=== PATIENT | male | born 1970 | race Caucasian/White ===

== ENCOUNTER → 2017-12-16 08:44 | Outpatient (CLI) | payer OTHER, SELFPAY ==
[2017-12-16 10:33] LABS: Absolute Lymphocyte Count 1.39 X10^3/ul (0.83-4.51); Absolute Neutrophil Count 3.2 X10^3/uL (2.0-7.7); Basophil# 0.04 X10^3/uL; Basophil% 0.7 % (0-1); Eosinophil# 0.17 X10^3/uL; Eosinophils% 3.1 % (0-5); Hematocrit 42.9 % (40-54); Hemoglobin 15.2 g/dl (13.0-16.5); Lymphocyte # 1.39 X10^3/ul (4.0); Lymphocyte % 25.6 % (19-41); Mean Corp Hgb Conc 35.4 g/gl (32-36); Mean Corpuscular Hgb 30.7 pg (27.0-32.0); Mean Corpuscular Volume 86.7 fL (80-94); Mean Platelet Vol. 9.3 fl (6.2-12.0); Monocyte# 0.61 X10^3/uL; Monocyte% 11.2 % (0-10); Neutrophil # 3.22 X10^3/uL (2.7-7.7); Neutrophil % 59.2 % (47-70); Platelet Count 348 K/mm3 (150-450); RBC Distribution Width CV 11.5 % (11.6-14.6); RBC Distribution Width SD 35.9 fl (35.1-43.9); Red Blood Count 4.95 M/mm3 (4.6-6.2); White Blood Count 5.4 K/mm3 (4.4-11.0)
[2017-12-16 10:35] LABS: POSITIVE COUNT NO; POSITIVE DIFFERENTIAL NO; POSITIVE MORPHOLOGY NO
[2017-12-16 10:55] LABS: Anion Gap 8 (5-15); BUN 18 mg/dL (7-18); BUN/Creat Ratio 14.9 RATIO (10-20); Calcium,Total 8.6 mg/dL (8.5-10.1); Chloride 109 mmol/L (98-107); Creatinine, Serum 1.21 mg/dL (0.70-1.30); EST Glomerular Filtration Rate 68 mL/min (>60); Est Glom Filt Rate - Afr Amer 82 mL/min (>60); Glucose 113 mg/dL (74-106); Potassium 4.3 mmol/L (3.5-5.1); Sodium Level 142 mmol/L (136-145)
[2017-12-22 15:08] LABS: QNTFERON TB Ag Minus Nil Value 0.09 IU/mL (.); QNTFERON TB Ag Value 0.12 IU/mL (.); QNTFERON TB Mitogen Value > 10.00 IU/mL (.); QNTFERON TB Nil Value 0.03 IU/mL (.)
[2017-12-23 12:00] LABS: QNTIFERON TB Gold Negative (Negative)
== END ==
PROVIDERS: Family Provider Family Medicine; PCP Family Medicine; Visit Provider Physician Assistant
DX: L40.0 Psoriasis vulgaris (principal); Z79.899 Other long term (current) drug therapy
CPT/HCPCS: 36415; 80048; 85025; 86480

== ENCOUNTER → 2018-05-15 12:52 | Outpatient (CLI) | payer OTHER, SELFPAY ==
--- NOTE | 2018-05-15 09:50 | RAD_ITS ---
HISTORY: psoriatic arthropathy COMPARISON: None FINDINGS: AP Pelvis: 1 view. No fracture or acute disease. Mild narrowing of the hips bilaterally with suggestion of subchondral sclerosis and subchondral cyst formation of the acetabular regions bilaterally. The SI joints appear preserved. As visualized, soft tissues are negative. RAD/Pelvis 1 or 2 Views IMPRESSION: 1. 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 2. The SI joints appear normal. at 0617 Reported and signed by: Shayan Liang MD Electronically Signed: Shayan Liang, at 6:15 EST Tel , Service support ,
[2018-05-15 13:37] LABS: ALB/GLOB Ratio 1.1 RATIO (0.9-2.4); AST(SGOT) 23 U/L (15-37); Alanine Aminotransfer ALT/SGPT 28 U/L (16-61); Albumin, Serum 3.9 g/dL (3.2-5.0); Alkaline Phosphatase 68 U/L (45-117); Anion Gap 8 (5-15); BUN 18 mg/dL (7-18); CRP < 2.90 mg/L (0.0-3.0); Calcium,Total 8.8 mg/dL (8.5-10.1); Chloride 111 mmol/L (98-107); EST Glomerular Filtration Rate 69 mL/min (>60); Est Glom Filt Rate - Afr Amer 83 mL/min (>60); Globulin 3.7 g/dL (2.2-4.2); Glucose 93 mg/dL (74-106); Potassium 4.5 mmol/L (3.5-5.1); Protein, Total 7.6 g/dL (6.4-8.2); Rheumatoid Factor < 10.0 IU/mL (<15); Sodium Level 141 mmol/L (136-145)
[2018-05-15 13:40] LABS: Absolute Lymphocyte Count 1.46 X10^3/ul (0.83-4.51); Absolute Neutrophil Count 3.8 X10^3/uL (2.0-7.7); Basophil# 0.03 X10^3/uL; Basophil% 0.5 % (0-1); Eosinophil# 0.13 X10^3/uL; Eosinophils% 2.2 % (0-5); Hematocrit 44.5 % (40-54); Hemoglobin 14.9 g/dl (13.0-16.5); Lymphocyte # 1.46 X10^3/ul (4.0); Lymphocyte % 24.7 % (19-41); Mean Corp Hgb Conc 33.5 g/gl (32-36); Mean Corpuscular Hgb 29.7 pg (27.0-32.0); Mean Corpuscular Volume 88.6 fL (80-94); Mean Platelet Vol. 9.6 fl (6.2-12.0); Monocyte# 0.53 X10^3/uL; Neutrophil # 3.75 X10^3/uL (2.7-7.7); Neutrophil % 63.4 % (47-70); Platelet Count 311 K/mm3 (150-450); RBC Distribution Width CV 12.1 % (11.6-14.6); RBC Distribution Width SD 38.5 fl (35.1-43.9); Red Blood Count 5.02 M/mm3 (4.6-6.2); White Blood Count 5.9 K/mm3 (4.4-11.0)
[2018-05-15 13:44] LABS: POSITIVE COUNT NO; POSITIVE DIFFERENTIAL NO; POSITIVE MORPHOLOGY NO
[2018-05-15 14:07] LABS: Erythrocyte Sedimentation Rate 9 mm/hr (0-15)
[2018-05-20 19:48] LABS: CCP IgG Antibodies 9 units (0-19); HEPATITIS B SURFACE AG Negative (Negative); HLA B27 Negative (.); Hep B Surface Antibodies Non Reactive (.); Hep C Antibodies 0.1 s/co ratio (0.0-0.9)
== END ==
PROVIDERS: Family Provider Family Medicine; PCP Family Medicine; Referring Provider Internal Medicine Rheumatology; Visit Provider Internal Medicine Rheumatology
DX: L40.59 Other psoriatic arthropathy (principal)
CPT/HCPCS: 36415; 72170; 80053; 81374; 85025; 85652; 86140; 86200; 86431; 86706; 86803; 87340

== ENCOUNTER → 2018-05-26 08:09 | Outpatient (CLI) | payer OTHER, SELFPAY ==
[2018-05-26 10:37] LABS: Absolute Lymphocyte Count 1.28 X10^3/ul (0.83-4.51); Absolute Neutrophil Count 3.5 X10^3/uL (2.0-7.7); Basophil# 0.02 X10^3/uL; Basophil% 0.4 % (0-1); Eosinophil# 0.18 X10^3/uL; Eosinophils% 3.3 % (0-5); Hematocrit 44.7 % (40-54); Hemoglobin 15.8 g/dl (13.0-16.5); Lymphocyte # 1.28 X10^3/ul (4.0); Lymphocyte % 23.4 % (19-41); Mean Corp Hgb Conc 35.3 g/gl (32-36); Mean Corpuscular Hgb 30.4 pg (27.0-32.0); Mean Platelet Vol. 9.4 fl (6.2-12.0); Monocyte# 0.51 X10^3/uL; Monocyte% 9.3 % (0-10); Neutrophil # 3.45 X10^3/uL (2.7-7.7); Neutrophil % 63.2 % (47-70); Platelet Count 336 K/mm3 (150-450); RBC Distribution Width CV 11.7 % (11.6-14.6); RBC Distribution Width SD 36.9 fl (35.1-43.9); White Blood Count 5.5 K/mm3 (4.4-11.0)
[2018-05-26 10:43] LABS: POSITIVE COUNT NO; POSITIVE DIFFERENTIAL NO; POSITIVE MORPHOLOGY NO
[2018-05-26 11:12] LABS: AST(SGOT) 27 U/L (15-37); Alanine Aminotransfer ALT/SGPT 36 U/L (16-61); Albumin, Serum 3.8 g/dL (3.2-5.0); Alkaline Phosphatase 69 U/L (45-117); Anion Gap 8 (5-15); BUN 19 mg/dL (7-18); BUN/Creat Ratio 16.2 RATIO (10-20); Calcium,Total 8.9 mg/dL (8.5-10.1); Chloride 106 mmol/L (98-107); Creatinine, Serum 1.17 mg/dL (0.70-1.30); EST Glomerular Filtration Rate 71 mL/min (>60); Est Glom Filt Rate - Afr Amer 86 mL/min (>60); Glucose 119 mg/dL (74-106); Potassium 4.2 mmol/L (3.5-5.1); Protein, Total 7.8 g/dL (6.4-8.2); Sodium Level 140 mmol/L (136-145)
--- OUTSIDE RECORDS SUMMARY | 2018-07-07 20:39 | XMS RPT_ITS ---
:1970 Author Organization OHIP Care Team Providers Name Role Phone Michell Cox Attending Unavailable Michell Cox Referring Unavailable Agnieszka, [place] Primary Care Unavailable Ngozi Winkler Attending Unavailable Jaysonlanmahad, Ngozi Referring Unavailable Agnieszka, [place] Primary Care Unavailable Michell Cox Attending Unavailable Cox, Michell Referring Unavailable Agnieszka, Wang Primary Care Unavailable PROBLEMS PROBLEMS DATE TYPE CONDITION / CODE ATTENDING STATUS SOURCE 05/26/2018 Unknown L40.0 - Psoriasis Michell Cox Active [place] [facility] L40.0(ICD-10) Hospital Repository 05/15/2018 Unknown L40.59 - Other JaysonlanNgozi tobin Active [place] [facility] arthropathy / Hospital L40.59(ICD-10) Repository 05/15/2018 Unknown L40.8 - Other Vellanki, Ngozi Active [place] psoriasis / [facility] L40.8(ICD-10) Hospital Repository PROCEDURES PROCEDURES No Procedure Records FoundRESULTS RESULTS CBC W/DIFF, AUTOMATED Collected: 05/26/2018 Status: F Source: [place] 8:14 AM [facility] REPOSITORY TYPE CODE TESTS RESULT OUT OF RANGE REFERENCE UNITS LAB L100.1000 4.4-11.0 K/mm3 Normal WBC 5.5 LAB L100.1200 4.6-6.2 M/mm3 Normal RBC 5.20 LAB L100.1300 13.0-16.5 g/dl Normal HGB 15.8 LAB L100.1400 40-54 % Normal HCT 44.7 LAB L100.1500 80-94 fL Normal MCV 86.0 LAB L100.1600 27.0-32.0 pg Normal MCH 30.4 LAB L100.1700 32-36 g/gl Normal MCHC 35.3 LAB L100.1810 11.6-14.6 % Normal RDW CV 11.7 LAB L100.1820 35.1-43.9 fl Normal RDW SD 36.9 LAB L100.1900 150-450 K/mm3 Normal PLT 336 LAB L100.2000 6.2-12.0 fl Normal MPV 9.4 LAB L100.2100 47-70 % Normal NEUT% 63.2 LAB L100.2200 19-41 % Normal LY% 23.4 LAB L100.2300 0-10 % Normal MONO% 9.3 LAB L100.2400 0-5 % Normal EO% 3.3 LAB L100.2500 0-1 % Normal BASO% 0.4 LAB L100.2550 0.0-0.9 % Normal IM GRAN % 0.400 Result Comment: IG% - Immature Granulocytes (promyelocytes, myelocytes and metamyelocytes) > 1% indicates that a LEFT SHIFT is Present. LAB L100.2620 2.0-7.7 X10 3/uL Normal Absolute Neut 3.5 LAB L100.2720 0.83-4.51 X10 3/ul Normal Absolute Lymph 1.28 Performed By: #### L100.0100 #### [facility] [address] [place], [address] COMPREHENSIVE METABOLIC Collected: 05/26/2018 Status: F Source: [facility] 8:14 AM [facility] [place] TYPE CODE TESTS RESULT OUT OF RANGE REFERENCE UNITS LAB L501.0100 74-106 mg/dL High GLU 119 Result Comment: Fasting Glucose result from 100 to 125 mg/dL suggests IMPAIRED HOMEOSTASIS per A.D.A. criteria. Please note revised GLUCOSE reference range effective 2017. LAB L501.1000 7-18 mg/dL High BUN 19 LAB L501.1100 0.70-1.30 mg/dL Normal CREAT,SERUM 1.17 Result Comment: The validity of the calculated GFR AND GFRAA in patients over 70 years has not been determined. Clinical correlation is essential. LAB L501.1110 >60 mL/min Normal EST GFR 71 Result Comment: Non- GFR Calc LAB L501.1115 >60 mL/min Normal EST GFR - AA 86 Result Comment: GFR Calc LAB L501.1300 10-20 RATIO Normal BUN/CRE 16.2 LAB L501.1500 6.4-8.2 g/dL T Normal PROT 7.8 LAB L501.1800 3.2-5.0 g/dL Normal ALB 3.8 LAB L501.1950 2.2-4.2 g/dL Normal GLOB 4.0 LAB L501.2000 0.9-2.4 RATIO Normal A/G 1.0 LAB L501.2200 8.5-10.1 mg/dL CA Normal 8.9 LAB L501.4100 15-37 U/L Normal AST 27 LAB L501.4305 45-117 U/L Normal ALK P 69 LAB L501.4405 16-61 U/L Normal ALT 36 LAB L501.4600 0.20-1.00 mg/dL T Normal BILI 0.40 LAB L501.5300 136-145 mmol/L NA Normal 140 LAB L501.5600 3.5-5.1 mmol/L K Normal 4.2 LAB L501.5900 98-107 mmol/L CL Normal 106 LAB L501.6100 21.0-32.0 mmol/L Normal CO2 26.0 LAB L501.6200 5-15 Normal GAP 8 Performed By: #### L500.4050 #### [facility] [address] [facility] [place], [address] PELVIS 1 OR 2 VIEWS Observed: 05/15/2018 Status: F Source: [place] 2:46 PM [facility] [place] [facility] Imaging Services [address] [place] [id number] Pelvis 1 or 2 Views MR#: [id number] Acct: [id number] Name: MALIK DAIGLE Rep #: [id number] : 1970 M 48 From: Shayan Liang MD PCP: Wang Aaron MD Status: REG CLI Study: Pelvis 1 or 2 Views Date of Exam: 05/15/18 Exam# [id number] Ordering Dr: Ngozi Winkler MD HISTORY: psoriatic arthropathy COMPARISON: None FINDINGS: AP Pelvis: 1 view. No fracture or acute disease. Mild narrowing of the hips bilaterally with suggestion of subchondral sclerosis and subchondral cyst formation of the acetabular regions bilaterally. The SI joints appear preserved. As visualized, soft tissues are negative. RAD/Pelvis 1 or 2 Views IMPRESSION: 1. 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 2. The SI joints appear normal. at 0617 Reported and signed by: Shayan Liang MD Electronically Signed: Shayan Liang, at 6:15 EST Tel , Service support , CC: Ngozi Winkler MD; Wang Aaron MD Early Education Teacher: Signed COMPREHENSIVE METABOLIC Collected: 05/15/2018 Status: F Source: [place] PROFIL 9:44 AM [facility] [place] TYPE CODE TESTS RESULT OUT OF RANGE REFERENCE UNITS LAB L501.0100 74-106 mg/dL Normal GLU 93 Result Comment: Please note revised GLUCOSE reference range effective 2017. LAB L501.1000 7-18 mg/dL Normal BUN 18 LAB L501.1100 0.70-1.30 mg/dL Normal CREAT,SERUM 1.20 Result Comment: The validity of the calculated GFR AND GFRAA in patients over 70 years has not been determined. Clinical correlation is essential. LAB L501.1110 >60 mL/min Normal EST GFR 69 Result Comment: Non- GFR Calc LAB L501.1115 >60 mL/min Normal EST GFR - AA 83 Result Comment: GFR Calc LAB L501.1300 10-20 RATIO Normal BUN/CRE 15.0 LAB L501.1500 6.4-8.2 g/dL T Normal PROT 7.6 LAB L501.1800 3.2-5.0 g/dL Normal ALB 3.9 LAB L501.1950 2.2-4.2 g/dL Normal GLOB 3.7 LAB L501.2000 0.9-2.4 RATIO Normal A/G 1.1 LAB L501.2200 8.5-10.1 mg/dL CA Normal 8.8 LAB L501.4100 15-37 U/L Normal AST 23 Result Comment: Slight Hemolysis, Result may be falsely increased. LAB L501.4305 45-117 U/L Normal ALK P 68 LAB L501.4405 16-61 U/L Normal ALT 28 LAB L501.4600 0.20-1.00 mg/dL Normal T BILI 0.30 LAB L501.5300 136-145 mmol/L Normal NA 141 LAB L501.5600 3.5-5.1 mmol/L Normal K 4.5 Result Comment: Slight Hemolysis, Result may be falsely increased. LAB L501.5900 98-107 mmol/L High CL 111 LAB L501.6100 21.0-32.0 mmol/L Normal CO2 22.0 LAB L501.6200 5-15 Normal 8 GAP Performed By: #### L500.4050, L501.6710, L505.7010 #### [facility] [address] [facility] [address] CRP Collected: 05/15/2018 Status: F Source: [place] 9:44 AM [facility] [place] TYPE CODE TESTS RESULT OUT OF RANGE REFERENCE UNITS LAB L501.6710 0.0-3.0 mg/L Normal < 2.90 C-REACTIVE PROT Result Comment: C-Reactive Protein (CRP) provides useful information for the diagnosis, therapy and monitoring of inflammatory processes and associated diseases. For the evaluation of Relative Risk for Cardiovascular Disease, a High Sensitivity CRP (HSCRP) should be ordered. Performed By: #### L500.4050, L501.6710, L505.7010 #### [facility] [address] [place], [place], [id number] RHEUMATOID FACTOR Collected: 05/15/2018 Status: F Source: [place] 9:44 AM [facility] [place] TYPE CODE TESTS RESULT OUT OF RANGE REFERENCE UNITS LAB L505.7010 <15 IU/mL Normal RHEUMATOID FAC < 10.0 Performed By: #### L500.4050, L501.6710, L505.7010 #### [facility] [address] [place], [address] CBC W/DIFF, AUTOMATED Collected: 05/15/2018 Status: F Source: [place] 9:44 AM [facility] [place] TYPE CODE TESTS RESULT OUT OF RANGE REFERENCE UNITS LAB L100.1000 4.4-11.0 K/mm3 Normal WBC 5.9 LAB L100.1200 4.6-6.2 M/mm3 Normal RBC 5.02 LAB L100.1300 13.0-16.5 g/dl Normal HGB 14.9 LAB L100.1400 40-54 % Normal HCT 44.5 LAB L100.1500 80-94 fL Normal MCV 88.6 LAB L100.1600 27.0-32.0 pg Normal MCH 29.7 LAB L100.1700 32-36 g/gl Normal MCHC 33.5 LAB L100.1810 11.6-14.6 % Normal RDW CV 12.1 LAB L100.1820 35.1-43.9 fl Normal RDW SD 38.5 LAB L100.1900 150-450 K/mm3 Normal PLT 311 LAB L100.2000 6.2-12.0 fl Normal MPV 9.6 LAB L100.2100 47-70 % Normal NEUT% 63.4 LAB L100.2200 19-41 % Normal LY% 24.7 LAB L100.2300 0-10 % Normal MONO% 9.0 LAB L100.2400 0-5 % Normal EO% 2.2 LAB L100.2500 0-1 % Normal BASO% 0.5 LAB L100.2550 0.0-0.9 % Normal IM GRAN % 0.200 Result Comment: IG% - Immature Granulocytes (promyelocytes, myelocytes and metamyelocytes) > 1% indicates that a LEFT SHIFT is Present. LAB L100.2620 2.0-7.7 X10 3/uL Normal Absolute Neut 3.8 LAB L100.2720 0.83-4.51 X10 3/ul Normal Absolute Lymph 1.46 Performed By: #### L100.0100, L101.9900 #### [facility] [address] [place], [address] ERYTHROCYTE SED RATE Collected: 05/15/2018 Status: F Source: [place] 9:44 AM [facility] [place] TYPE CODE TESTS RESULT OUT OF RANGE REFERENCE UNITS LAB L102.0000 0-15 mm/hr Normal SED RATE 9 Performed By: #### L100.0100, L101.9900 #### [facility] [address] [place], [address] HEPATITIS B SURFACE Collected: 05/15/2018 Status: F Source: [place] AG 9:44 AM [facility] [place] TYPE CODE TESTS RESULT OUT OF RANGE REFERENCE UNITS LAB L3100.0400 Negative Normal HB Negative SURF AG Result Comment: Performed at: - [facility] [id number] [employer] Dba: Mike Ricardo PhD, Phone: [phone] Performed at: - [facility] [id number] [employer]ba: Jay Perkins PhD, Phone: [phone] Performed at: - [facility] [id number] [employer]ba: Herminio Lott MD, Phone: [phone] Performed By: #### L3100.0390, L3100.0528, L3100.0625, L3410.1400, L4600.0100 #### [facility] (refer to report for specific site) refer to report for address and phone number HEP B SURFACE Collected: 05/15/2018 Status: F Source: [place] ANTIBODIES 9:44 AM [facility] [place] TYPE CODE TESTS RESULT OUT OF RANGE REFERENCE UNITS LAB L3100.0528 . Normal Hep B Non Reactive Cali AB Result Comment: Non Reactive: Inconsistent with immunity, less than 10 mIU/mL Reactive: Consistent with immunity, greater than 9.9 mIU/mL Performed By: #### L3100.0390, L3100.0528, L3100.0625, L3410.1400, L4600.0100 #### [facility] (refer to report for specific site) refer to report for address and phone number HEPATITIS C ANTIBODIES Collected: 05/15/2018 Status: F Source: [place] 9:44 AM [facility] [place] TYPE CODE TESTS RESULT OUT OF RANGE REFERENCE UNITS LAB L3100.0650 0.0-0.9 s/co ratio Normal HEP C AB 0.1 Result Comment: Negative: < 0.8 Indeterminate: 0.8 - 0.9 Positive: > 0.9 The CDC recommends that a positive HCV antibody result be followed up with a HCV Nucleic Acid Amplification test (292212). Performed By: #### L3100.0390, L3100.0528, L3100.0625, L3410.1400, L4600.0100 #### [facility] (refer to report for specific site) refer to report for address and phone number HLA B27 Collected: 05/15/2018 Status: F Source: [place] 9:44 AM [facility] [place] TYPE CODE TESTS RESULT OUT OF RANGE REFERENCE UNITS LAB L3410.1500 . Normal HLA Negative B27 Result Comment: HLA-B*27 Negative B27 allele interpretation for all loci based on IMGT/HLA database version 3.31.0 This test was developed and its performance characteristics determined by [facility]. It has not been cleared or approved by the Food and Drug Administration. [facility] CLIA ID Number [id number] This test was performed using PCR (Polymerase Chain Reaction)/SSOP (Sequence Specific Oligonucleotide Probes) technique. SBT (Sequence Based Typing) and/or SSP (Sequence Specific Primers) may be used as supplemental methods when necessary. Please contact [facility] Customer Service at if you have any questions. Director of [facility] Laboratory Dr Jay Perkins, PhD Performed By: #### L3100.0390, L3100.0528, L3100.0625, L3410.1400, L4600.0100 #### [facility] (refer to report for specific site) refer to report for address and phone number CCP IGG ANTIBODIES Collected: 05/15/2018 Status: F Source: [place] 9:44 AM [facility] [place] TYPE CODE TESTS RESULT OUT OF RANGE REFERENCE UNITS LAB L4600.0100 0-19 units Normal ANTI-CCP 9 [id number] Result Comment: Negative <20 Weak positive 20 - 39 Moderate positive 40 - 59 Strong positive >59 Performed By: #### L3100.0390, L3100.0528, L3100.0625, L3410.1400, L4600.0100 #### [facility] (refer to report for specific site) refer to report for address and phone number CBC W/DIFF, AUTOMATED Collected: 12/16/2017 Status: F Source: [place] 8:52 AM [facility] [place] TYPE CODE TESTS RESULT OUT OF RANGE REFERENCE UNITS LAB L100.1000 4.4-11.0 K/mm3 Normal WBC 5.4 LAB L100.1200 4.6-6.2 M/mm3 Normal RBC 4.95 LAB L100.1300 13.0-16.5 g/dl Normal HGB 15.2 LAB L100.1400 40-54 % Normal HCT 42.9 LAB L100.1500 80-94 fL Normal MCV 86.7 LAB L100.1600 27.0-32.0 pg Normal MCH 30.7 LAB L100.1700 32-36 g/gl Normal MCHC 35.4 LAB L100.1810 11.6-14.6 % Low RDW CV 11.5 LAB L100.1820 35.1-43.9 fl Normal RDW SD 35.9 LAB L100.1900 150-450 K/mm3 Normal PLT 348 LAB L100.2000 6.2-12.0 fl Normal MPV 9.3 LAB L100.2100 47-70 % Normal NEUT% 59.2 LAB L100.2200 19-41 % Normal LY% 25.6 LAB L100.2300 0-10 % High MONO% 11.2 LAB L100.2400 0-5 % Normal EO% 3.1 LAB L100.2500 0-1 % Normal BASO% 0.7 LAB L100.2550 0.0-0.9 % Normal IM GRAN % 0.200 Result Comment: IG% - Immature Granulocytes (promyelocytes, myelocytes and metamyelocytes) > 1% indicates that a LEFT SHIFT is Present. LAB L100.2620 2.0-7.7 X10 3/uL Normal Absolute Neut 3.2 LAB L100.2720 0.83-4.51 X10 3/ul Normal Absolute Lymph 1.39 Performed By: #### L100.0100 #### [facility] [address], [address] BASIC METABOLIC Collected: 12/16/2017 Status: F Source: [facility] PROFILE (BMP) 8:52 AM [facility] [place] TYPE CODE TESTS RESULT OUT OF RANGE REFERENCE UNITS LAB L501.0100 74-106 mg/dL High GLU 113 Result Comment: Fasting Glucose result from 100 to 125 mg/dL suggests IMPAIRED HOMEOSTASIS per A.D.A. criteria. Please note revised GLUCOSE reference range effective 2017. LAB L501.1000 7-18 mg/dL Normal BUN 18 LAB L501.1100 0.70-1.30 mg/dL Normal CREAT,SERUM 1.21 Result Comment: The validity of the calculated GFR AND GFRAA in patients over 70 years has not been determined. Clinical correlation is essential. LAB L501.1110 >60 mL/min Normal EST GFR 68 Result Comment: Non- GFR Calc LAB L501.1115 >60 mL/min Normal EST GFR - AA 82 Result Comment: GFR Calc LAB L501.1300 10-20 RATIO Normal BUN/CRE 14.9 LAB L501.2200 8.5-10.1 mg/dL CA Normal 8.6 LAB L501.5300 136-145 mmol/L NA Normal 142 LAB L501.5600 3.5-5.1 mmol/L K Normal 4.3 LAB L501.5900 98-107 mmol/L High CL 109 LAB L501.6100 21.0-32.0 mmol/L Normal CO2 25.0 LAB L501.6200 5-15 Normal GAP 8 Performed By: #### L500.2500 #### [facility] [address] [place], [address] QUANTIFERON TB-GOLD Collected: 12/16/2017 Status: F Source: [place] 8:52 AM [facility] [place] TYPE CODE TESTS RESULT OUT OF RANGE REFERENCE UNITS LAB L3400.7025 Negative Normal QFT Negative TB GOLD Result Comment: The specimen received for QuantiFERON testing was incubated by the ordering institution. Specific procedures outlined in our Directory of Services and in the package insert for the QuantiFERON Gold (In Tube) test must be followed to enable for proper stimulation of cells for the production of interferon gamma. LAB L3400.7035 . Normal QFT TB Comment POS CRIT Result Comment: To be considered positive a specimen should have a TB Ag minus Nil value greater than or equal to 0.35 IU/mL and in addition the TB Ag minus Nil value must be greater than or equal to 25% of the Nil value. There may be insufficient information in these values to differentiate between some negative and some indeterminate test values. LAB L3400.7045 . IU/mL Normal QFT TB AB 0.12 VALUE LAB L3400.7055 . IU/mL Normal QFT NIL VALUE 0.03 LAB L3400.7065 . IU/mL > Normal QFT MITOGEN 10.00 DAMARIS LAB L3400.7075 . IU/mL Normal QFT AG - NIL 0.09 LAB L3400.7085 . Normal QFT TB INTER Comment Result Comment: The QuantiFERON TB Gold (in Tube) assay is intended for use as an aid in the diagnosis of TB infection. Negative results suggest that there is no TB infection. In patients with high suspicion of exposure, a negative test should be repeated. A positive test indicates infection with Mycobacterium tuberculosis. Among individuals without tuberculosis infection, a positive test may be due to exposure to M. kansasii, M. szulgai or M. marinum. On the Internet, go to cdc.gov/tb for further details. Performed at: [facility] [id number] [employer]: Mike Ricardo PhD, Phone: [phone] Performed By: #### L3400.7000 #### [facility] (refer to report for specific site) refer to report for address and phone number ALLERGIES ALLERGIES No Allergies Records FoundENCOUNTERS ENCOUNTERS ADMIT/DISCHARGE ACCOUNT ADMITTING ENCOUNTER LOCATION SOURCE NUMBER CLASS 05/26/[id number] ing:[facility] Repository 05/15/2018 [id number] [facility] ing:[facility] Repository 12/16/[id number] [facility] PAYERS PAYERS ENCOUNTER GUARANTOR PAYER SUBSCRIBER SOURCE 05/26/2018 MALIK POTTER A [place] [address] Insurance:[address] 168DUNDJOHANNY, [facility] Number: B: [id number] [address]Flk: [id number] Repository Date:7039-07-[address], [place] [address]YE: 05/26/2018 Secondary NOT GIVENUNK Thuy Insurance:SELF PAY [facility] Number: Effective Repository Date:2018-05-26 05/15/2018 MALIK Caicedo Primary CRYSTAL A [place] [id number] Insurance:[facility] [address], [place] Number: B: [id number] [address]Shl: [id number] Repository Date:7649-54-66IR [address] () [address], [place] [address]XD: 05/15/2018 Secondary NOT GIVENUNK Thuy Insurance:SELF PAY [facility] Number: Effective Repository Date:2018-05-15 12/16/2017 MALIK Caicedo Primary CRYSTAL A Th[place] [id number] Insurance:[facility] [address], [place] Number: B: [id number]-Na[facility] [address]Obe: [id number] Repository Date:0766-03-26[address] () [address], [place] [address]BD: 12/16/2017 Secondary NOT GIVENUNK Thuy Insurance:SELF PAY [facility] Number: Effective Repository Date:2017-12-16
== END ==
PROVIDERS: Family Provider Family Medicine; PCP Family Medicine; Referring Provider Physician Assistant; Visit Provider Physician Assistant
DX: L40.0 Psoriasis vulgaris (principal); Z79.899 Other long term (current) drug therapy
CPT/HCPCS: 36415; 80053; 85025

== ENCOUNTER → 2018-07-21 08:40 | Outpatient (CLI) | payer OTHER, SELFPAY ==
[2018-07-21 10:30] LABS: Absolute Lymphocyte Count 1.48 X10^3/ul (0.83-4.51); Absolute Neutrophil Count 3.4 X10^3/uL (2.0-7.7); Basophil# 0.04 X10^3/uL; Basophil% 0.7 % (0-1); Eosinophil# 0.16 X10^3/uL; Eosinophils% 2.8 % (0-5); Hematocrit 43.1 % (40-54); Hemoglobin 14.5 g/dl (13.0-16.5); Lymphocyte # 1.48 X10^3/ul (4.0); Lymphocyte % 26.2 % (19-41); Mean Corp Hgb Conc 33.6 g/gl (32-36); Mean Corpuscular Hgb 30.4 pg (27.0-32.0); Mean Corpuscular Volume 90.4 fL (80-94); Mean Platelet Vol. 9.4 fl (6.2-12.0); Monocyte# 0.52 X10^3/uL; Monocyte% 9.2 % (0-10); Neutrophil # 3.42 X10^3/uL (2.7-7.7); Neutrophil % 60.7 % (47-70); Platelet Count 307 K/mm3 (150-450); RBC Distribution Width CV 12.5 % (11.6-14.6); RBC Distribution Width SD 40.6 fl (35.1-43.9); Red Blood Count 4.77 M/mm3 (4.6-6.2); White Blood Count 5.6 K/mm3 (4.4-11.0)
[2018-07-21 10:32] LABS: POSITIVE COUNT NO; POSITIVE DIFFERENTIAL NO; POSITIVE MORPHOLOGY NO
[2018-07-21 10:45] LABS: AST(SGOT) 26 U/L (15-37); Alanine Aminotransfer ALT/SGPT 31 U/L (16-61); Albumin, Serum 3.9 g/dL (3.2-5.0); Alkaline Phosphatase 72 U/L (45-117); Anion Gap 7 (5-15); BUN 17 mg/dL (7-18); BUN/Creat Ratio 14.9 RATIO (10-20); Calcium,Total 8.7 mg/dL (8.5-10.1); Chloride 110 mmol/L (98-107); Creatinine, Serum 1.14 mg/dL (0.70-1.30); EST Glomerular Filtration Rate 73 mL/min (>60); Est Glom Filt Rate - Afr Amer 88 mL/min (>60); Globulin 3.8 g/dL (2.2-4.2); Glucose 95 mg/dL (74-106); Potassium 4.5 mmol/L (3.5-5.1); Protein, Total 7.7 g/dL (6.4-8.2); Sodium Level 142 mmol/L (136-145)
--- OUTSIDE RECORDS SUMMARY | 2018-09-22 09:05 | XMS RPT_ITS ---
:1970 Author Organization OHIP Care Team Providers Name Role Phone Ngozi Winkler Attending Unavailable Vellanmahad, Ngozi Referring Unavailable Agnieszka, Wang Primary Care Unavailable Cox, Michell Attending Unavailable Cox, Michell Referring Unavailable Agnieszka, Wang Primary Care Unavailable Vellanki, Ngozi Attending Unavailable Vellanki, Ngozi Referring Unavailable Agnieszka, [place] Primary Care Unavailable Cox, Michell Attending Unavailable Cox, Michell Referring Unavailable Agnieszka, Wang Primary Care Unavailable PROBLEMS PROBLEMS DATE TYPE CONDITION / CODE ATTENDING STATUS SOURCE 07/21/2018 Unknown 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, 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 / Hospital L40.59(ICD-10) Repository 07/21/2018 Unknown Z79.899 - Other Vellanki, Ngozi Active [facility] (current[facility] drug Hospital therapy / Repository Z79.899(ICD-10) 07/21/2018 Unknown L40.8 - Other Vellanki, Ngozi Active [facility] psoriasis / Community L40.8(ICD-10) Hospital Repository 05/26/2018 Unknown L40.0 - Psoriasis Michell Cox Active [facility] vulgaris / Community L40.0(ICD-10) Hospital Repository PROCEDURES PROCEDURES No Procedure Records FoundRESULTS RESULTS CBC W/DIFF, AUTOMATED Collected: 07/21/2018 Status: F Source: [place] 8[facility] [facility] [place] TYPE CODE TESTS RESULT OUT OF RANGE REFERENCE UNITS LAB L100.1000 4.4-11.0 K/mm3 Normal WBC 5.6 LAB L100.1200 4.6-6.2 M/mm3 Normal RBC 4.77 LAB L100.1300 13.0-16.5 g/dl Normal HGB 14.5 LAB L100.1400 40-54 % Normal HCT 43.1 LAB L100.1500 80-94 fL Normal MCV 90.4 LAB L100.1600 27.0-32.0 pg Normal MCH 30.4 LAB L100.1700 32-36 g/gl Normal MCHC 33.6 LAB L100.1810 11.6-14.6 % Normal RDW CV 12.5 LAB L100.1820 35.1-43.9 fl Normal RDW SD 40.6 LAB L100.1900 150-450 K/mm3 Normal PLT 307 LAB L100.2000 6.2-12.0 fl Normal MPV 9.4 LAB L100.2100 47-70 % Normal NEUT% 60.7 LAB L100.2200 19-41 % Normal LY% 26.2 LAB L100.2300 0-10 % Normal MONO% 9.2 LAB L100.2400 0-5 % Normal EO% 2.8 LAB L100.2500 0-1 % Normal BASO% 0.7 LAB L100.2550 0.0-0.9 % Normal IM GRAN % 0.400 Result Comment: IG% - Immature Granulocytes (promyelocytes, myelocytes and metamyelocytes) > 1% indicates that a LEFT SHIFT is Present. LAB L100.2620 2.0-7.7 X10 3/uL Normal Absolute Neut 3.4 LAB L100.2720 0.83-4.51 X10 3/ul Normal Absolute Lymph 1.48 Performed By: #### L100.0100 #### [facility] [address] [place], [address] COMPREHENSIVE METABOLIC Collected: 07/21/2018 Status: F Source: [facility] 8:43 AM [facility] [place] TYPE CODE TESTS RESULT OUT OF RANGE REFERENCE UNITS LAB L501.0100 74-106 mg/dL Normal GLU 95 Result Comment: Please note revised GLUCOSE reference range effective 2017. LAB L501.1000 7-18 mg/dL Normal BUN 17 LAB L501.1100 0.70-1.30 mg/dL Normal CREAT,SERUM 1.14 Result Comment: The validity of the calculated GFR AND GFRAA in patients over 70 years has not been determined. Clinical correlation is essential. LAB L501.1110 >60 mL/min Normal EST GFR 73 Result Comment: Non- GFR Calc LAB L501.1115 >60 mL/min Normal EST GFR - AA 88 Result Comment: GFR Calc LAB L501.1300 10-20 RATIO Normal BUN/CRE 14.9 LAB L501.1500 6.4-8.2 g/dL T Normal PROT 7.7 LAB L501.1800 3.2-5.0 g/dL Normal ALB 3.9 LAB L501.1950 2.2-4.2 g/dL Normal GLOB 3.8 LAB L501.2000 0.9-2.4 RATIO Normal A/G 1.0 LAB L501.2200 8.5-10.1 mg/dL CA Normal 8.7 LAB L501.4100 15-37 U/L Normal AST 26 LAB L501.4305 45-117 U/L Normal ALK P 72 LAB L501.4405 16-61 U/L Normal ALT 31 LAB L501.4600 0.20-1.00 mg/dL T Normal BILI 0.40 LAB L501.5300 136-145 mmol/L NA Normal 142 LAB L501.5600 3.5-5.1 mmol/L K Normal 4.5 LAB L501.5900 98-107 mmol/L High CL 110 LAB L501.6100 21.0-32.0 mmol/L Normal CO2 25.0 LAB L501.6200 5-15 Normal GAP 7 Performed By: #### L500.4050 #### [facility] [address] [place], [place], [address] CBC W/DIFF, AUTOMATED Collected: 05/26/2018 Status: F Source: [place] 8:14 AM [facility] [place] TYPE CODE TESTS RESULT OUT OF [...] Lymph 1.28 Performed By: #### L100.0100 #### [facility] [address] [place], [place], [id number] COMPREHENSIVE METABOLIC Collected: 05/26/2018 Status: F [facility] [place] TYPE CODE TESTS RESULT OUT OF [...] GAP 8 Performed By: #### L500.4050 #### [facility] [address] [place], [address] PELVIS 1 OR 2 VIEWS Observed: 05/15/2018 Status: F Source: [place] 2:46 PM [facility] [place] [facility] Imaging Services [address] [place] [address] Pelvis 1 or 2 Views MR#: [id number] Acct: [id number] Name: MALIK DAIGLE Rep #: [id number] : 1970 M 48 From: Shayan Liang MD PCP: Wang Aaron MD Status: REG CLI Study: Pelvis 1 or 2 Views Date of Exam: 05/15/18 Exam# [id number] Ordering Dr: Ngozi Winkler MD HISTORY: psoriatic [...] CC: Ngozi Winkler MD; Wang Aaron MD [employer] Driver: Signed COMPREHENSIVE METABOLIC Collected: 05/15/2018 Status: F Source: [place] 9:44 AM [facility] [place] TYPE CODE TESTS RESULT OUT OF [...] Performed By: #### L500.4050, L501.6710, L505.7010 #### [facility] [address] [facility] [place], [place], [id number] CRP Collected: 05/15/2018 Status: F Source: [place] 9:44 AM [facility] [place] TYPE CODE TESTS RESULT OUT OF RANGE REFERENCE UNITS LAB L501.6710 0.0-3.0 mg/L Normal < 2.90 C-REACTIVE PROT Result Comment: C-Reactive Protein (CRP) provides useful information for the diagnosis, therapy and monitoring of inflammatory processes and associated diseases. For the evaluation of Relative Risk for Cardiovascular Disease, a High Sensitivity CRP (HSCRP) should be ordered. Performed By: #### L500.4050, L501.6710, L505.7010 #### [facility] [address] [place], [place], [address] RHEUMATOID FACTOR Collected: 05/15/2018 Status: F Source: [place] 9:44 AM [facility] [place] TYPE CODE TESTS RESULT OUT OF RANGE REFERENCE UNITS LAB L505.7010 <15 IU/mL Normal RHEUMATOID FAC < 10.0 Performed By: #### L500.4050, L501.6710, L505.7010 #### [facility] [address], [address] CBC W/DIFF, AUTOMATED Collected: 05/15/2018 Status: F Source: [place] 9:44 AM [facility] [place] TYPE CODE TESTS RESULT OUT OF [...] 1.46 Performed By: #### L100.0100, L101.9900 #### [facility] [address] [place], [place], [id number] ERYTHROCYTE SED RATE Collected: 05/15/2018 Status: F Source: [place] 9:44 AM [facility] [place] TYPE CODE TESTS RESULT OUT OF RANGE REFERENCE UNITS LAB L102.0000 0-15 mm/hr Normal SED RATE 9 Performed By: #### L100.0100, L101.9900 #### [facility] [address] [place], [place], [id number] HEPATITIS B SURFACE Collected: 05/15/2018 Status: F Source: [place] AG 9:44 AM [facility] [place] TYPE CODE TESTS RESULT OUT OF RANGE REFERENCE UNITS LAB L3100.0400 Negative Normal HB Negative SURF AG Result Comment: Performed at: [facility] [id number] Business Relations Manager: Mike Ricardo PhD, Phone: [phone] Performed at: [address] [place] [phone] Business Relations Manager: Jay Perkins PhD, Phone: [phone] Performed at: [address] [phone] Business Relations Manager: Herminio Lott MD, Phone: [phone] Performed By: #### L3100.0390, L3100.0528, L3100.0625, L3410.1400, L4600.0100 #### [facility] (refer to report for specific site) refer to report for address and phone number HEP B SURFACE Collected: 05/15/2018 Status: F Source: [place]TIBOD[place] 9:44 AM [facility] [place] TYPE CODE TESTS RESULT OUT OF [...] 05/15/2018 Status: F Source: [place] 9:44 AM [facility] [place] TYPE CODE TESTS RESULT OUT OF RANGE REFERENCE UNITS LAB L3100.0650 0.0-0.9 s/co ratio Normal HEP C AB 0.1 Result Comment: Negative: < 0.8 Indeterminate: 0.8 - 0.9 Positive: > 0.9 The CDC recommends that a positive HCV antibody result be followed up with a HCV Nucleic Acid Amplification test (393379). Performed By: #### L3100.0390, L3100.0528, L3100.0625, L3410.1400, L4600.0100 #### [facility] (refer to report for specific site) refer to report for address and phone number HLA B27 Collected: 05/15/2018 Status: F Source: [place] 9:44 AM [facility] [place] TYPE CODE TESTS RESULT OUT OF RANGE REFERENCE UNITS LAB L3410.1500 . Normal HLA Negative B27 Result Comment: HLA-B*27 Negative B27 allele interpretation for all loci based on IMGT/HLA database version 3.31.0 This test was developed and its performance characteristics determined by [facility]. It has not been cleared or approved by the Food and Drug Administration. HLA Lab CLIA ID Number [id number] This test was performed using PCR (Polymerase [...] 05/15/2018 Status: F Source: [place] 9:44 AM [facility] [place] TYPE CODE TESTS RESULT OUT OF RANGE REFERENCE UNITS LAB L4600.0100 0-19 units Normal ANTI-CCP 9 [id number] Result Comment: Negative <20 Weak positive 20 - 39 Moderate positive 40 - 59 Strong positive >59 Performed By: #### L3100.0390, L3100.0528, L3100.0625, L3410.1400, L4600.0100 #### [facility] (refer to report for specific site) refer to report for address and phone number CBC W/DIFF, AUTOMATED Collected: 12/16/2017 Status: F Source: [place] 8:52 AM [facility] [place] TYPE CODE TESTS RESULT OUT OF [...] Lymph 1.39 Performed By: #### L100.0100 #### [facility] [address] [place], [place], [address] BASIC METABOLIC Collected: 12/16/2017 Status: F Source: [place] PROFILE (BMP) 8:52 AM [facility] [place] TYPE CODE TESTS RESULT OUT OF [...] GAP 8 Performed By: #### L500.2500 #### [facility] [address] [place], [address] QUANTIFERON TB-GOLD Collected: 12/16/2017 Status: F Source: [place] 8:52 AM [facility] [place] TYPE CODE TESTS RESULT OUT OF [...] to cdc.gov/tb for further details. Performed at: [email or web address] [phone] Business Relations Manager: Mike Ricardo PhD, Phone: [phone] Performed By: #### L3400.7000 #### [facility] (refer to report for specific site) refer to report for address and phone number ALLERGIES ALLERGIES No Allergies Records FoundENCOUNTERS ENCOUNTERS ADMIT/DISCHARGE ACCOUNT ADMITTING ENCOUNTER LOCATION SOURCE NUMBER CLASS 07/21/2018 [id number] Ambulatory [facility] 6 [facility] ing:MTLAB Repository 05/26/2018 [id number] Ambulatory [facility] 7 [facility] ing:MTLAB Repository 05/15/2018 [id number] Ambulatory [facility] 5 [facility] ing:MTLAB Repository 12/16/2017 [id number] [facility] 7 [facility] ing:MTLAB Repository PAYERS PAYERS ENCOUNTER GUARANTOR PAYER SUBSCRIBER SOURCE 07/21/2018 MALIK Caicedo Primary CRYSTAL A [facility] [id number] Insurance:[facility]ly [facility] [address], [place] Number: B: [id number] [address]Jbx: [id number] Repository Date:1248[address], [place] [address]DZ: 07/21/2018 Secondary NOT GIVENUNK [place] Insurance:SELF PAY [facility] Number: Effective Repository Date:2018-07-21 05/26/2018 MALIK Caicedo Primary CRYSTAL A [facility] [id number] Insurance:[facility]ly [facility] [address], [place] Number: B: [id number] [facility] [address]Cio: [id number] Repository Date:6128-17-[address], [place] [address]JE: 05/26/2018 Secondary NOT GIVENUNK [facility] Insurance:SELF PAY [facility] Number: Effective Repository Date:2018-05-26 05/15/2018 MALIK Caicedo Primary CRYSTAL A [place] [id number] Insurance:[facility] [address], [place] Number: B: [id number] [facility] Medical Center [address]Hmy: [id number] Repository Date:3637-27-[address] () [address], [place] [address]AE: 05/15/2018 Secondary NOT GIVENUNK [facility] Insurance:SELF PAY [facility] Number: Effective Repository Date:2018-05-15 12/16/2017 MALIK Caicedo Primary CRYSTAL A [facility] [id number] Insurance:[facility] [address], [place] Number: B: [id number] [facility]amos Medical Center [address]Iyh: [id number] Repository Date:1396-52-[address], [place] [address]XN: 12/16/2017 Secondary NOT GIVENUNK [place] Insurance:SELF PAY [facility] Effective Repository Date:2017-12-16
== END ==
PROVIDERS: Family Provider Family Medicine; PCP Family Medicine; Referring Provider Internal Medicine Rheumatology; Visit Provider Internal Medicine Rheumatology
DX: L40.59 Other psoriatic arthropathy (principal); Z79.899 Other long term (current) drug therapy
CPT/HCPCS: 36415; 80053; 85025

== ENCOUNTER → 2019-11-17 08:51 | Outpatient (CLI) | payer OTHER, SELFPAY ==
[2019-11-17 10:23] LABS: Absolute Lymphocyte Count 1.39 X10^3/uL (0.83-4.51); Absolute Neutrophil Count 4.2 X10^3/uL (2.0-7.7); Basophil# 0.05 X10^3/uL; Basophil% 0.8 % (0-1); Eosinophil# 0.16 X10^3/uL; Eosinophils% 2.5 % (0-5); Hematocrit 43.6 % (40-54); Hemoglobin 14.6 g/dL (13.0-16.5); Lymphocyte # 1.39 X10^3/ul (4.0); Lymphocyte % 21.8 % (19-41); Mean Corp Hgb Conc 33.5 g/dL (32-36); Mean Corpuscular Hgb 29.1 pg (27.0-32.0); Mean Platelet Vol. 9.2 fl (6.2-12.0); Monocyte# 0.59 X10^3/uL; Monocyte% 9.2 % (0-10); NRBC Flagged by Analyzer 0 % (0-5); Neutrophil # 4.17 X10^3/uL (2.7-7.7); Neutrophil % 65.2 % (47-70); Platelet Count 317 K/mm3 (150-450); RBC Distribution Width CV 11.9 % (11.6-14.6); RBC Distribution Width SD 37.5 fl (35.1-43.9); Red Blood Count 5.01 M/mm3 (4.6-6.2); White Blood Count 6.4 K/mm3 (4.4-11.0)
[2019-11-17 10:50] LABS: ALB/GLOB Ratio 0.9 RATIO (0.9-2.4); AST(SGOT) 23 U/L (15-37); Alanine Aminotransfer ALT/SGPT 32 U/L (16-61); Albumin, Serum 3.7 g/dL (3.2-5.0); Alkaline Phosphatase 69 U/L (45-117); Anion Gap 6 (5-15); BUN 19 mg/dL (7-18); Calcium,Total 8.8 mg/dL (8.5-10.1); Chloride 110 mmol/L (98-107); Cholesterol 236 mg/dL (200); Creatinine, Serum 1.12 mg/dL (0.70-1.30); EST Glomerular Filtration Rate 74 mL/min (>60); Est Glom Filt Rate - Afr Amer 89 mL/min (>60); Glucose 114 mg/dL (74-106); High Density Lipoprotein 34 mg/dL; Protein, Total 7.7 g/dL (6.4-8.2); Sodium Level 141 mmol/L (136-145); Triglycerides 296 mg/dL; Very Low Density Lipoprotein 59 mg/dL (5-40)
[2019-11-20 03:07] LABS: QNTFERON TB Mitogen Value > 10.00 IU/mL (.); QNTFERON TB Nil Value 0.02 IU/mL (.); QNTFERON TB1+ Ag Value 0.03 IU/mL (.); QNTFERON TB2+ Ag Value 0.02 IU/mL (.)
[2019-11-21 01:11] LABS: QNTIFERON TB Positive Criteria Negative (Negative)
== END ==
PROVIDERS: PCP Family Medicine
DX: L40.0 Psoriasis vulgaris (principal); L40.59 Other psoriatic arthropathy
CPT/HCPCS: 36415; 80053; 80061; 85025; 86480

== ENCOUNTER → 2020-10-19 09:12 | Outpatient (CLI) | payer OTHER, SELFPAY ==
[2020-10-19 13:42] LABS: Hepatitis B Surface Antibody Non-Reactive; Hepatitis B Surface Antigen Non-Reactive (Nonreactive); Hepatitis C Antibody Non-Reactive (Nonreactive)
[2020-10-25 03:07] LABS: QNTFERON TB Mitogen Value > 10.00 IU/mL (.); QNTFERON TB Nil Value 0 IU/mL (.); QNTFERON TB1+ Ag Value 0 IU/mL (.); QNTFERON TB2+ Ag Value 0 IU/mL (.)
[2020-10-25 12:45] LABS: Hepatitis B Core Ab Total Negative (Negative); QNTIFERON TB Positive Criteria Negative (Negative)
== END ==
PROVIDERS: PCP Family Medicine
DX: L40.0 Psoriasis vulgaris (principal); Z79.899 Other long term (current) drug therapy
CPT/HCPCS: 36415; 86480; 86704; 86706; 86803; 87340

== ENCOUNTER → 2021-03-21 08:26 | Outpatient (CLI) | payer OTHER, SELFPAY ==
[2021-03-25 03:07] LABS: QNTFERON TB Mitogen Value > 10.00 IU/mL (.); QNTFERON TB Nil Value 0.01 IU/mL (.); QNTFERON TB1+ Ag Value 0.02 IU/mL (.); QNTFERON TB2+ Ag Value 0.02 IU/mL (.)
[2021-03-25 08:38] LABS: QNTIFERON TB Positive Criteria Negative (Negative)
== END ==
PROVIDERS: PCP Family Medicine; Referring Provider Dermatology Pediatric Dermatology; Visit Provider Dermatology Pediatric Dermatology
DX: L40.0 Psoriasis vulgaris (principal); Z79.899 Other long term (current) drug therapy
CPT/HCPCS: 36415; 86480

== ENCOUNTER → 2023-04-23 | Outpatient (CLI) | payer OTHER, SELFPAY ==
[2023-04-25 20:08] LABS: Hepatitis B Core Ab Total Negative (Negative); QNTFERON TB Mitogen Value > 10.00 IU/mL (.); QNTFERON TB Nil Value 0.02 IU/mL (.); QNTFERON TB1+ Ag Value 0.05 IU/mL (.); QNTFERON TB2+ Ag Value 0.04 IU/mL (.); QNTIFERON TB Positive Criteria Negative (Negative)
== END | disposition home or self-care (01) ==
LOC: MTLAB 15:11
PROVIDERS: PCP Family Medicine; Referring Provider Physician Assistant Medical; Visit Provider Physician Assistant Medical
DX: L40.0 Psoriasis vulgaris (principal); Z79.899 Other long term (current) drug therapy
CPT/HCPCS: 36415; 86480; 86704

== ENCOUNTER → 2024-04-14 | Outpatient (CLI) | payer OTHER, SELFPAY | END | disposition home or self-care (01) | LOC: MTLAB 15:29 | PROVIDERS: PCP Family Medicine; Referring Provider Physician Assistant Medical; Visit Provider Physician Assistant Medical | DX: L40.0 Psoriasis vulgaris (principal) | CPT/HCPCS: 36415; 86480 ==